=== PATIENT | female | born 1975 | race American Indian/Alaskan Native ===

== ENCOUNTER 2016-07-15 01:07 | Emergency (ER) | payer OTHER ==
[2016-07-15 04:03] VITALS: BP 131/94
[2016-07-15 04:49] LABS: Basophils % (Auto) 0.8 % (0.0-1.8); Eosinophils % (Auto) 2.1 % (0.0-4.3); Hematocrit 41.2 % (30.3-42.9); Mean Corpuscular HGB Conc 34 % (30-34); Mean Corpuscular Hemoglobin 30 pg (28-32); Mean Corpuscular Volume 88 fl (79-97); Platelet Count 209 K/mm3 (140-440); Red Blood Count 4.71 M/mm3 (3.65-5.03); Red Cell Distribution Width 13.2 % (13.2-15.2)
[2016-07-15 05:07] LABS: Anion Gap 17 mmol/L; BUN/Creatinine Ratio 16.66; Blood Urea Nitrogen 15 mg/dL (7-17); Calcium 9.5 mg/dL (8.4-10.2); Carbon Dioxide 24 mmol/L (22-30); Chloride 102.2 mmol/L (98-107); Glucose 99 mg/dL (65-100); Potassium 3.9 mmol/L (3.6-5.0); Sodium 139 mmol/L (137-145)
--- NOTE | 2016-07-16 21:16 | ED Elopement Review ---
ED Pt Elopement review - Results review Lab results: Laboratory Tests 07/15/16 07/15/16 07/15/16 04:39 04:39 06:57 WBC 10.0 RBC 4.71 Hgb 14.0 Hct 41.2 MCV 88 MCH 30 MCHC 34 RDW 13.2 Plt Count 209 Lymph % (Auto) 39.8 H [place] % (Auto) 8.8 H Eos % (Auto) 2.1 Baso % (Auto) 0.8 Lymph # 4.0 [place] # 0.9 H Eos # 0.2 Baso # 0.1 Seg Neutrophils % 48.5 Seg Neutrophils # 4.8 Sodium 139 Potassium 3.9 Chloride 102.2 Carbon Dioxide 24 Anion Gap 17 BUN 15 Creatinine 0.9 Estimated GFR > 60 BUN/Creatinine Ratio 16.66 Glucose 99 Calcium 9.5 Troponin T < 0.010 < 0.010 - Call Back decision Pt Call Back Decision: No action required
== END 2016-07-15 08:48 | disposition left against medical advice (07) ==
LOC: ED 01:07
DX: R07.9 Chest pain, unspecified (principal); Z53.21 Procedure and treatment not carried out due to patient leaving prior to being seen by health care provider
CPT/HCPCS: 36415; 80048; 84484; 85025; 93005; 93010

== ENCOUNTER 2020-01-24 19:47 | Emergency (ER) | payer SELFPAY ==
[2020-01-24] MEDS ORDERED: ASPIRIN 325 MG TAB PO ONE (19:53)
[2020-01-24 20:24] LABS: Hematocrit 41.6 % (30.3-42.9); Hemoglobin 14.1 gm/dl (10.1-14.3); Mean Corpuscular HGB Conc 34 % (30-34); Mean Corpuscular Volume 89 fl (79-97); Platelet Count 221 K/mm3 (140-440); Red Blood Count 4.69 M/mm3 (3.65-5.03); Red Cell Distribution Width 12.8 % (13.2-15.2)
--- NOTE | 2020-01-24 20:24 | XRay Report ---
CHEST 1 VIEW, 01/24/2020 8:15 PM CLINICAL INFORMATION/INDICATION: Chest pain COMPARISON: Chest radiograph, 05/15/2015 FINDINGS: SUPPORT DEVICES: None. HEART: The cardiac silhouette is normal in size. LUNGS/PLEURA: The lungs are clear of focal airspace disease or significant pleural effusion. ADDITIONAL FINDINGS: No additional acute findings. IMPRESSION: 1. No evidence of acute cardiopulmonary process. Signer Name: Huong Damico MD Signed: 01/24/2020 8:20 PM Workstation Name: [id number]
[2020-01-24 20:29] LABS: BUN/Creatinine Ratio 11; Blood Urea Nitrogen 10 mg/dL (7-17); Calcium 9.4 mg/dL (8.4-10.2); Hemolysis Index 6
[2020-01-24 22:33] LABS: Band Neutrophils # (Manual) 0.1 K/mm3; Basophils % (Manual) 0 % (0.0-1.8); Total Cells Counted 100
[2020-01-24 22:34] LABS: Ovalocytes Rare; Platelet Estimate Consistent w Auto
--- NOTE | 2020-01-25 07:28 | Emergency Department Report ---
ED General Adult HPI - General Chief complaint: Chest Pain Stated complaint: RAPID HEART RATE Time Seen by Provider: 01/25/20 06:39 Source: patient Mode of arrival: Ambulatory Limitations: No Limitations - History of Present Illness Initial comments: Patient presents to the emergency department the chief complaint of a heart racing. Patient states last night she noticed that her heart rate was increasing from approximately 110 bpm to 160 bpm. Patient states at that time she took her metoprolol 25 mg without a decrease in her heart rate. Patient s tates that she is worn a alarm security or surveillance monitor for evaluation of her palpitations recently to no avail. Patient states she is also had a bubble test which showed that she had a small PFO. Patient states she has had issues with palpitations for at least a year. Patient denies any chest pain, shortness breath, or abdominal pain. -: Sudden Radiation: non-radiation Severity scale (0 -10): 0 Consistency: now resolved Improves with: none Worsens with: none Associated Symptoms: denies other symptoms Treatments Prior to Arrival: none - Related Data Previous Rx's Medication Instructions Recorded Last Taken Type Albuterol Sulfate [Ventolin HFA] 2 puff IH Q4H PRN #1 hfa.aer.ad 05/15/15 Unknown Rx Loratadine (Nf) [Claritin] 10 mg PO DAILY #30 tablet 05/15/15 Unknown Rx Prednisone [predniSONE 10 mg 10 mg PO .TAPER #1 tab.ds.pk 05/15/15 Unknown Rx (6-Day Pack, 21 Tabs)] Promethazine /Codeine 5 ml PO Q6H PRN #150 ml 05/15/15 Unknown Rx [Phenergan/Codeine 6.25-10 mg/5 ml] Sulfamethoxazole/Trimethoprim 1 each PO BID #20 tablet 05/15/15 Unknown Rx [Bactrim DS TAB] Allergies Allergy/AdvReac Type Severity Reaction Status Date / Time Penicillins Allergy Unknown Verified 05/15/15 20:11 ED Review of Systems ROS: Stated complaint: RAPID HEART RATE Other details as noted in HPI Comment: All other systems reviewed and negative Constitutional: denies: chills, fever Eyes: denies: eye pain, eye discharge, vision change ENT: denies: ear pain, throat pain Respiratory: denies: cough, shortness of breath, wheezing Cardiovascular: denies: chest pain, palpitations Endocrine: no symptoms reported Gastrointestinal: denies: abdominal pain, nausea, diarrhea Genitourinary: denies: urgency, dysuria, discharge Musculoskeletal: denies: back pain, joint swelling, arthralgia Skin: denies: rash, lesions Neurological: denies: headache, weakness, paresthesias Psychiatric: denies: anxiety, depression Hematological/Lymphatic: denies: easy bleeding, easy bruising ED Past Medical Hx - Past Medical History Previous Medical History?: Yes Hx Asthma: Yes - Surgical History Past Surgical History?: Yes Additional Surgical History: Vein Ablation lower legs - Social History Smoking Status: Never Smoker Substance Use Type: None - Medications Home Medications: Home Medications Medication Instructions Recorded Confirmed Last Taken Type Albuterol Sulfate [Ventolin HFA] 2 puff IH Q4H PRN #1 hfa.aer.ad 05/15/15 Unknown Rx Loratadine (Nf) [Claritin] 10 mg PO DAILY #30 tablet 05/15/15 Unknown Rx Prednisone [predniSONE 10 mg 10 mg PO .TAPER #1 tab.ds.pk 05/15/15 Unknown Rx (6-Day Pack, 21 Tabs)] Promethazine /Codeine 5 ml PO Q6H PRN #150 ml 05/15/15 Unknown Rx [Phenergan/Codeine 6.25-10 mg/5 ml] Sulfamethoxazole/Trimethoprim 1 each PO BID #20 tablet 05/15/15 Unknown Rx [Bactrim DS TAB] ED Physical Exam - General Limitations: No Limitations General appearance: alert, in no apparent distress - Head Head exam: Present: atraumatic, normocephalic - Eye Eye exam: Present: normal appearance, PERRL, EOMI - ENT ENT exam: Present: mucous membranes moist - Neck Neck exam: Present: normal inspection - Respiratory Respiratory exam: Present: normal lung sounds bilaterally. Absent: respiratory distress - Cardiovascular Cardiovascular Exam: Present: regular rate, normal rhythm, other (Heart rate is 62 bpm on exam). Absent: systolic murmur, diastolic murmur, rubs, gallop - GI/Abdominal GI/Abdominal exam: Present: soft, normal bowel sounds. Absent: distended, tenderness - Extremities Exam Extremities exam: Present: normal inspection - Back Exam Back exam: Present: normal inspection - Neurological Exam Neurological exam: Present: alert, oriented X3 - Psychiatric Psychiatric exam: Present: normal affect, normal mood - Skin Skin exam: Present: warm, dry, intact, normal color. Absent: rash ED Course Vital Signs 01/24/20 01/25/20 01/25/20 20:01 05:18 05:23 Temperature 98.7 F Pulse Rate 107 H 57 L Respiratory 18 15 Rate Blood Pressure 131/94 125/74 Blood Pressure 125/74 [Right] O2 Sat by Pulse 99 99 Oximetry 01/25/20 01/25/20 05:31 06:00 Temperature Pulse Rate 61 61 Respiratory 19 Rate Blood Pressure 125/74 128/81 Blood Pressure [Right] O2 Sat by Pulse 98 99 Oximetry ED Medical Decision Making - Lab Data Result diagrams: 01/24/20 19:57 01/24/20 19:57 - EKG Data -: EKG Interpreted by [facility] EKG shows normal: sinus rhythm Rate: tachycardia - Medical Decision Making Discussed results with patient concerning laboratory values and EKG. We discuss ed possible CT of the chest for evaluation of pulmonary emboli but the patient states that she has no chest pain or leg pain and has had these palpitations over the last couple of months. We discussed possibly being evaluated by endocrinology which the patient states she will address the next time she sees her telephone order dispatcher. Critical care attestation.: If time is entered above; I have spent that time in minutes in the direct care of this critically ill patient, excluding procedure time. ED Disposition Clinical Impression: Palpitations Disposition: DC-01 TO HOME OR SELFCARE Is pt being admited?: No Does the pt Need Aspirin: No Condition: Stable Instructions: Palpitations (ED) Additional Instructions: return if worse Referrals: NICOLASA MEDEIROS MD [Primary Care Provider] - 3-5 Days SOCRATES ZAMORA MD [Staff Physician] - 3-5 Days Time of Disposition: 07:26
[2020-01-25 07:54] VITALS: BP 133/87
== END 2020-01-25 07:55 | disposition home or self-care (01) ==
LOC: ED 19:47
DX: R00.2 Palpitations (principal); J45.909 Unspecified asthma, uncomplicated; Z79.899 Other long term (current) drug therapy; Z88.0 Allergy status to penicillin; Z98.890 Other specified postprocedural states
CPT/HCPCS: 36415; 71045; 80048; 84484; 84703; 85007; 85025; 93005

== ENCOUNTER 2020-04-06 22:10 | Emergency (ER) | payer OTHER ==
[2020-04-06 22:27] VITALS: BP 152/86
--- NOTE | 2020-04-07 00:02 | XRay Report ---
CHEST 2 VIEWS, 04/06/2020 10:03 PM INDICATION: Chest pain. Palpitations. COMPARISON: Chest radiograph, 01/24/2020 FINDINGS: Support devices: None. Heart: The cardiac silhouette is normal in size. Lungs/pleura: The lungs are clear of focal airspace disease or significant pleural effusion Additional findings: No significant acute abnormality. IMPRESSION: 1. No evidence of acute cardiopulmonary process. Signer Name: Huong Damico MD Signed: 04/06/2020 11:58 PM Workstation Name: [id number]
[2020-04-07 00:30] LABS: Basophils # (Auto) 0.1 K/mm3 (0.0-0.1); Basophils % (Auto) 0.7 % (0.0-1.8); Eosinophils # (Auto) 0.1 K/mm3 (0.0-0.4); Eosinophils % (Auto) 1.6 % (0.0-4.3); Hematocrit 39.3 % (30.3-42.9); Hemoglobin 13.3 gm/dl (10.1-14.3); Lymphocytes # (Auto) 2.3 K/mm3 (1.2-5.4); Lymphocytes % (Auto) 29.6 % (13.4-35.0); Mean Corpuscular HGB Conc 34 % (30-34); Mean Corpuscular Volume 89 fl (79-97); Monocytes # (Auto) 0.8 K/mm3 (0.0-0.8); Monocytes % (Auto) 9.7 % (0.0-7.3); Platelet Count 216 K/mm3 (140-440); Red Blood Count 4.44 M/mm3 (3.65-5.03); Red Cell Distribution Width 12.8 % (13.2-15.2)
[2020-04-07 00:54] LABS: Alanine Aminotransferase 24 units/L (7-56); Albumin 4.1 g/dL (3.9-5); BUN/Creatinine Ratio 13; Blood Urea Nitrogen 12 mg/dL (7-17); Calcium 9.6 mg/dL (8.4-10.2); Hemolysis Index 7
== END 2020-04-07 04:25 | disposition left against medical advice (07) ==
LOC: ED 22:10
DX: R00.0 Tachycardia, unspecified (principal); Z53.21 Procedure and treatment not carried out due to patient leaving prior to being seen by health care provider
CPT/HCPCS: 36415; 71046; 80053; 83735; 84484; 85025; 93005